=== PATIENT | female | born 1995 | race Caucasian/White ===

== ENCOUNTER 2020-10-16 15:46 | Outpatient (REF) | payer MEDICAID, SELFPAY | END 2020-10-16 15:47 | disposition home or self-care (01) | LOC: HO.LAB 15:46 | PROVIDERS: Visit Provider Internal Medicine | DX: Z20.828 Contact with and (suspected) exposure to other viral communicable diseases (principal) | CPT/HCPCS: C9803; U0003 ==

== ENCOUNTER 2020-11-05 09:00 | Outpatient (REF) | payer MEDICAID, SELFPAY | END 2020-11-05 09:01 | disposition home or self-care (01) | LOC: HO.LAB 09:00 | PROVIDERS: Visit Provider Internal Medicine | DX: Z20.828 Contact with and (suspected) exposure to other viral communicable diseases (principal) | CPT/HCPCS: C9803; U0003 ==

== ENCOUNTER 2020-12-16 15:03 | Outpatient (REF) | payer MEDICAID, SELFPAY | END 2020-12-16 15:04 | disposition home or self-care (01) | LOC: HO.LAB 15:03 | PROVIDERS: Visit Provider Internal Medicine | DX: Z20.822 Contact with and (suspected) exposure to COVID-19 (principal) | CPT/HCPCS: 36415; C9803; U0003 ==

== ENCOUNTER 2021-02-16 13:51 | Outpatient (REF) | payer MEDICAID, SELFPAY | END 2021-02-16 13:52 | disposition home or self-care (01) | LOC: HO.LAB 13:51 | PROVIDERS: Visit Provider Internal Medicine | DX: Z20.822 Contact with and (suspected) exposure to COVID-19 (principal) | CPT/HCPCS: 36415; C9803; U0003; U0005 ==

== ENCOUNTER 2021-03-23 09:21 | Outpatient (REF) | payer MEDICAID, SELFPAY ==
[2021-03-23 09:46] LABS: COVID-19 Test Negative (Negative)
== END 2021-03-23 09:22 | disposition home or self-care (01) ==
LOC: HO.LAB 09:21
PROVIDERS: Visit Provider Internal Medicine
DX: Z20.822 Contact with and (suspected) exposure to COVID-19 (principal)
CPT/HCPCS: 36415; 87635; C9803

== ENCOUNTER 2021-12-06 09:59 | Emergency (ER) | payer MEDICAID, SELFPAY ==
--- NOTE | ~2021-12-06 | US_ITS ---
EXAMINATION: US OBSTETRICAL ULTRASOUND CLINICAL INFORMATION: Positive home test. Vaginal bleeding. Rule out ectopic . COMPARISON: None. LMP: Unknown. Gestational age by maternal dates is . Estimated date of delivery by maternal dates is . TECHNIQUE: Transabdominal and transvaginal pelvic ultrasound was performed. Transvaginal exam was performed for better visualization of the uterus and ovaries. FINDINGS: The uterus is retroverted and measures 7.3 x 4.5 x 6 cm in dimension. The endometrium does not appear thickened measuring 0.6 cm. No intrauterine is seen. No focal uterine lesion is seen. The right ovary is slightly enlarged and measures 4 x 3.4 x 4.3 cm. There is a 3.5 x 2.9 x 3.8 cm complex right ovarian cyst with thickened septations and area of wall thickening. The left ovary is normal-appearing and measures 3.4 x 2.1 x 2.5 cm. There is a small amount of fluid in the pelvis. There is a 1 x 1.5 x 1.3 cm heterogeneous appearing solid area in the posterior cul-de-sac. US/US OB pelvic and transvaginal IMPRESSION: No intrauterine seen. Enlarged right ovary and 3.5 x 2.9 x 3.8 cm complex right ovarian cyst. Small amount of fluid in the pelvis with 1 x 1.5 x 1.3 cm echogenic solid appearing area. Ectopic cannot be excluded. Correlation with quantitative beta hCG and short-term follow-up OB ultrasound recommended. Findings will be communicated by the [place] work flow online facilitator Estrella Marie.
[2021-12-06 10:40] VITALS: BP 125/81; PULSE 70; RESP 19; TEMP 36.6; O2SAT 99; BMI 27.4
[2021-12-06 16:20] LABS: MANUAL DIFF FLAG NO
[2021-12-06 16:23] LABS: Hematocrit 40.8 % (37.0-47.0); Hemoglobin 13.2 g/dl (12.0-16.0); Mean Corpuscular Volume 89.7 fL (80.0-98.0); Red Blood Count 4.55 X10*6/uL (4.20-5.50); White Blood Count 9.5 X10*3/uL (4.8-10.8)
[2021-12-06 16:24] LABS: Basophils Percent Auto 0.3 % (0-2); Eosinophils Absolute Auto 0.2 X10*3/uL (0.0-0.4); Eosinophils Percent Auto 2.4 % (0-4); Imm Gran Abs Auto 0.03 X10*3/uL (0.00-0.03); Imm Gran Pct Auto 0.3 % (0.0-0.4); Lymphocytes Absolute Auto 3.3 X10*3/uL (1.2-4.9); Lymphocytes Percent Auto 35.1 % (20-40); Mean Corpuscular HGB Conc 32.4 g/dl (31.0-35.0); Mean Platelet Volume 9.2 fL (9.4-12.3); Monocytes Absolute Auto 0.7 X10*3/uL (0.1-1.2); Monocytes Percent Auto 7.6 % (2-11); Neutrophils Absolute Auto 5.2 x10*3/uL (2.0-8.3); Neutrophils Percent Auto 54.3 % (45-73); Platelet Count 240 X10*3/uL (160-400); Red Cell Distribution Width 12.7 % (11.0-16.0)
--- NOTE | 2021-12-06 16:24 | PC.NURSE ---
PT AMBULATED TO ROOM 1 LABS OBTAINED IV INSERTED. EVALUATED BY PROVIDER. DR PEDRAZA TO COME AND EVAL PATIENT
[2021-12-06 16:29] LABS: Prothrombin Time 11.8 SEC (9.9-13.0)
[2021-12-06 16:35] LABS: Alanine Aminotransferase 14 U/L (0-31); Albumin Level 4.1 g/dL (3.5-5.0); Alkaline Phosphatase 68 U/L (39-117); Anion Gap 10 (12-20); Aspartate Amino Transferase 13 U/L (5-31); Bilirubin Total 0.4 mg/dL (0.0-1.0); Blood Urea Nitrogen 8 mg/dL (9-16); Calcium 9.5 mg/dL (8.4-10.2); Carbon Dioxide 28 mmol/L (22-29); Chloride 106 mmol/L (96-108); Creatinine Clr Calc Pharmacy 132.2; Estimated Glomerular Filt Rate > 60; Glucose Random 98 mg/dL (60-115); Magnesium 2.2 mg/dL (1.6-2.6); Potassium 3.7 mmol/L (3.3-5.1); Sodium 140 mmol/L (135-145); Total Protein 7.4 g/dL (6.5-8.0)
[2021-12-06 16:36] VITALS: BP 117/68; PULSE 68; RESP 20; TEMP 37.1; O2SAT 100
[2021-12-06 16:41] LABS: Rheumatoid Factor < 15.0 IU/mL (<15.0)
[2021-12-06 16:42] LABS: HCG Quantitative 4 mIU/mL
[2021-12-06 16:44] LABS: Glucose Urine UA NEG (NEG); Leukocyte Esterase Urine TRACE (NEG); Nitrite Urine NEG (NEG); PH 6.5 (5.0-8.0); Specific Gravity - Urine 1.025 (1.005-1.025); UACC Culture Trigger YES; Urine Blood 3+ (NEG); Urine Ketones NEG (NEG); Urine Protein 2+ MG/DL (NEG-TRACE)
[2021-12-06 16:45] LABS: Appearance Urine HAZY; Color Urine DARK YELLOW
[2021-12-06 16:48] LABS: UPreg QC Valid YES; Urine Pregnancy NEGATIVE (NEGATIVE)
--- NOTE | 2021-12-06 16:49 | ED.GENADULT ---
HPI - General Adult General Chief complaint: General Medical Stated complaint: bleeding Time Seen by Provider: 12/06/21 10:35 Source: patient Mode of arrival: ambulatory Limitations: no limitations History of Present Illness HPI narrative: 26-year-old female AB 2 here with reports of 2 days of abdominal cramping (left) with vag bleeding (3 pads in 24 hr period). Patient tells me that she had normal. Around [place] which was 5 days long. Then on December 02 she had 3 days of light bleeding. Since then she has not had a menses. She took a home test next on November 22 was positive. Related Data Allergies Allergy/AdvReac Type Severity Reaction Status Date / Time No Known Allergies Allergy Unverified 08/13/20 16:20 [No Known Allergies*] Review of Systems Review of Systems: Yes all other systems are reviewed and are negative Constitutional: Constitutional: Reports no additional constitutional complaints, Denies body ache(s), Denies chills, Denies fever(s), Denies headache(s) and Denies weakness Eyes: Eyes: Reports no additional eye complaints and Denies change in vision ENT: Reports system reviewed and no additional complaints, except as documented, Denies dizziness, Denies headache(s), Denies nasal congestion, Denies nasal discharge and Denies neck pain Cardiovascular: Cardiovascular: Reports no additional cardiovascular complaints, Denies chest pain, Denies leg edema and Denies dyspnea Respiratory: Respiratory: Reports no additional respiratory complaints, Denies cough and Denies dyspnea Gastrointestinal: Gastrointestinal: Reports no additional gastrointestinal complaints, Reports abdominal pain, Denies diarrhea, Denies nausea and Denies vomiting Genitourinary: Genitourinary: Reports no additional female genitourinary complaints, Reports abnormal vaginal bleeding and Denies urinary incontinence Musculoskeletal: Musculoskeletal: Reports no additional musculoskeletal complaints, Denies back pain, Denies arthralgias, Denies joint swelling, Denies neck pain, Denies numbness and Denies tingling Integumentary/Breasts: Skin/Breast: Reports system reviewed and no additional complaints, except as docu and Denies rash Neurologic: Reports system reviewed and no additional complaints, except as documented, Denies Abnormal speech present, Denies dizziness, Denies headache(s), Denies numbness, Denies tingling and Denies weakness [facility] Past Medical History Attestation statement: The following information was validated with the patient. Source: old records reviewed and nursing notes reviewed Medical History Asthma Physical Exam Vital Signs: Vital Signs: Last Vital Signs Temp 98.7 F 12/06/21 16:36 Pulse 68 12/06/21 16:36 Resp 20 12/06/21 16:36 BP 117/68 12/06/21 16:36 Pulse Ox 100 12/06/21 16:36 BMI result Body Mass Index 27.4 Const: General: cooperative, healthy appearing, comfortable and no acute distress Orientation/consciousness: patient oriented x3 Limitations: no limitations HENMT: Head: Yes normal to inspection Ears: hearing grossly normal bilaterally General nose exam: Normal external nose present Face and sinus: Yes normal facial exam Mouth: Normal oral and palatal mucosa present Throat: Yes posterior oropharynx normal Eyes: General: appearance normal, both eyes and all related structures Pupils: Equal, round and reactive pupils present Neck: Neck: Yes normal visual inspection Chest: Chest palpation & inspection: normal inspection of the chest Resp: Effort & Inspection: normal respiratory effort Auscultation: clear to auscultation bilaterally Cardio: Rate: regular rate Rhythm: regular rhythm Peripheral pulses: Peripheral pulses 2+ throughout GI: Inspection: Yes normal to inspection Palpation (GI): Soft to palpation and nontender Auscultation: normal bowel sounds : Other: Pelvic exam done by Dr Kaminski Back/Spine/Pelvis: Thoracic/Lumbar Spine: thoracic and lumbar spine normal to inspection Skin: General skin exam: no rashes or lesions noted Neuro: General: patient oriented x3, no focal motor deficits and normal sensation to monofilament Cranial nerves: Yes Equal, round and reactive pupils present Cognition (Neuro): normal cognition Speech: No Abnormal speech present Gait exam (Neuro): Normal gait present Motor exam (neuro): 5/5 motor strength present throughout Extrem: General: Yes normal to inspection Course Course Course Narrative: 26 yo female here with pelvic pain left and vaginal bleeding for 2 days with a home test that was positive on November 22. Has not had care and has not had an ultrasound to confirm IUP. Abdomen is soft and nontender exam. Vitals are stable Ultrasound from triage was concerning for a possible ectopic and so Dr. Gordy Del Toro was notified and is coming down to see the patient. This was done prior to labs and urine sampling. -patient had a pelvic exam done by Dr. kaminski. Testing for BV and CT NG were sent. Again abdomen is soft and nontender. Vitals are stable. Patient's urine is negative. Her labs are unremarkable. Her beta quant is 4 and her urine was negative. -After discussion likely spontaneous miscarriage. Not likely ectopic . RH is A negative. Patient has required Rhogam in the past. OB is asking for screen prior to Rhogam administration. I spoke to the blood bank (mary) who tells me this can be added to the labs she has and no need for additional lab draw. -reviewed worrisome signs and symptoms with the patient when to return to the emergency department. I ordered a repeat quant in 48 hours and the patient was informed of this. The patient will follow-up with her in the office. Medical Decision Making Medical Records Medical records reviewed: Yes I reviewed the patient's medical records. Lab Data Lab results reviewed: Yes I reviewed the patient's lab results. Result diagrams: 12/06/21 16:14 12/06/21 16:14 Labs: Lab Results 12/06/21 12/06/21 12/06/21 Range/Units 16:14 16:14 16:14 WBC 9.5 (4.8-10.8) X10*3/uL RBC 4.55 (4.20-5.50) X10*6/uL Hgb 13.2 (12.0-16.0) g/dl Hct 40.8 (37.0-47.0) % MCV 89.7 (80.0-98.0) fL MCH 29.0 (27.0-33.0) pg MCHC 32.4 (31.0-35.0) g/dl RDW 12.7 (11.0-16.0) % Plt Count 240 (160-400) X10*3/uL MPV 9.2 L (9.4-12.3) fL Immature Gran % (Auto) 0.3 (0.0-0.4) % Neut % (Auto) 54.3 (45-73) % Lymph % (Auto) 35.1 (20-40) % Meigs % (Auto) 7.6 (2-11) % Eos % (Auto) 2.4 (0-4) % Baso % (Auto) 0.3 (0-2) % Lymph # (Auto) 3.3 (1.2-4.9) X10*3/uL Meigs # (Auto) 0.7 (0.1-1.2) X10*3/uL Eos # (Auto) 0.2 (0.0-0.4) X10*3/uL Baso # (Auto) 0.0 (0.0-0.2) X10*3/uL Abs Immat Gran (auto) 0.03 (0.00-0.03) X10*3/uL Absolute Neuts (auto) 5.2 (2.0-8.3) x10*3/uL Absolute Nucleated RBC 0.000 (0.0-0.012) X10*3/uL Nucleated RBC % (auto) 0.0 (0.0-0.2) /100WBC PT 11.8 (9.9-13.0) SEC INR 1.0 (0.9-1.1) Sodium 140 (135-145) mmol/L Potassium 3.7 (3.3-5.1) mmol/L Chloride 106 (96-108) mmol/L Carbon Dioxide 28 (22-29) mmol/L Anion Gap 10 L (12-20) BUN 8 L (9-16) mg/dL Creatinine 0.67 (0.5-1.4) mg/dL Estim Creat Clear Calc 132.2 Estimated GFR > 60 Random Glucose 98 (60-115) mg/dL Calcium 9.5 (8.4-10.2) mg/dL Magnesium 2.2 (1.6-2.6) mg/dL Total Bilirubin 0.4 (0.0-1.0) mg/dL AST 13 (5-31) U/L ALT 14 (0-31) U/L Alkaline Phosphatase 68 (39-117) U/L Total Protein 7.4 (6.5-8.0) g/dL Albumin 4.1 (3.5-5.0) g/dL Beta HCG, Quant 4 mIU/mL Urine Color Urine Appearance Urine pH (5.0-8.0) Ur Specific Benedict (1.005-1.025) Urine Protein (NEG-TRACE) MG/DL Urine Glucose (UA) (NEG) MG/DL Urine Ketones (NEG) MG/DL Urine Blood (NEG) Urine Nitrite (NEG) Ur Leukocyte Esterase (NEG) Urine RBC (0) /HPF Urine WBC (0-4) /HPF Ur Squamous Epith Cells /LPF Urine Bacteria /LPF Granular Casts /LPF Urine Test (NEGATIVE) Rheumatoid Factor (<15.0) IU/mL Blood Type 12/06/21 12/06/21 12/06/21 Range/Units 16:23 16:28 16:35 WBC (4.8-10.8) X10*3/uL RBC (4.20-5.50) X10*6/uL Hgb (12.0-16.0) g/dl Hct (37.0-47.0) % MCV (80.0-98.0) fL MCH (27.0-33.0) pg MCHC (31.0-35.0) g/dl RDW (11.0-16.0) % Plt Count (160-400) X10*3/uL MPV (9.4-12.3) fL Immature Gran % (Auto) (0.0-0.4) % Neut % (Auto) (45-73) % Lymph % (Auto) (20-40) % Meigs % (Auto) (2-11) % Eos % (Auto) (0-4) % Baso % (Auto) (0-2) % Lymph # (Auto) (1.2-4.9) X10*3/uL Meigs # (Auto) (0.1-1.2) X10*3/uL Eos # (Auto) (0.0-0.4) X10*3/uL Baso # (Auto) (0.0-0.2) X10*3/uL Abs Immat Gran (auto) (0.00-0.03) X10*3/uL Absolute Neuts (auto) (2.0-8.3) x10*3/uL Absolute Nucleated RBC (0.0-0.012) X10*3/uL Nucleated RBC % (auto) (0.0-0.2) /100WBC PT (9.9-13.0) SEC INR (0.9-1.1) Sodium (135-145) mmol/L Potassium (3.3-5.1) mmol/L Chloride (96-108) mmol/L Carbon Dioxide (22-29) mmol/L Anion Gap (12-20) BUN (9-16) mg/dL Creatinine (0.5-1.4) mg/dL Estim Creat Clear Calc Estimated GFR Random Glucose (60-115) mg/dL Calcium (8.4-10.2) mg/dL Magnesium (1.6-2.6) mg/dL Total Bilirubin (0.0-1.0) mg/dL AST (5-31) U/L ALT (0-31) U/L Alkaline Phosphatase (39-117) U/L Total Protein (6.5-8.0) g/dL Albumin (3.5-5.0) g/dL Beta HCG, Quant mIU/mL Urine Color DARK YELLOW Urine Appearance HAZY Urine pH 6.5 (5.0-8.0) Ur Specific Benedict 1.025 (1.005-1.025) Urine Protein 2+ H (NEG-TRACE) MG/DL Urine Glucose (UA) NEG (NEG) MG/DL Urine Ketones NEG (NEG) MG/DL Urine Blood 3+ H (NEG) Urine Nitrite NEG (NEG) Ur Leukocyte Esterase TRACE H (NEG) Urine RBC 15-29 H (0) /HPF Urine WBC 1-4 (0-4) /HPF Ur Squamous Epith Cells TRACE /LPF Urine Bacteria 1+ /LPF Granular Casts 0-2 /LPF Urine Test (NEGATIVE) Rheumatoid Factor < 15.0 (<15.0) IU/mL Blood Type A Negative 12/06/21 Range/Units 16:35 WBC (4.8-10.8) X10*3/uL RBC (4.20-5.50) X10*6/uL Hgb (12.0-16.0) g/dl Hct (37.0-47.0) % MCV (80.0-98.0) fL MCH (27.0-33.0) pg MCHC (31.0-35.0) g/dl RDW (11.0-16.0) % Plt Count (160-400) X10*3/uL MPV (9.4-12.3) fL Immature Gran % (Auto) (0.0-0.4) % Neut % (Auto) (45-73) % Lymph % (Auto) (20-40) % Meigs % (Auto) (2-11) % Eos % (Auto) (0-4) % Baso % (Auto) (0-2) % Lymph # (Auto) (1.2-4.9) X10*3/uL Meigs # (Auto) (0.1-1.2) X10*3/uL Eos # (Auto) (0.0-0.4) X10*3/uL Baso # (Auto) (0.0-0.2) X10*3/uL Abs Immat Gran (auto) (0.00-0.03) X10*3/uL Absolute Neuts (auto) (2.0-8.3) x10*3/uL Absolute Nucleated RBC (0.0-0.012) X10*3/uL Nucleated RBC % (auto) (0.0-0.2) /100WBC PT (9.9-13.0) SEC INR (0.9-1.1) Sodium (135-145) mmol/L Potassium (3.3-5.1) mmol/L Chloride (96-108) mmol/L Carbon Dioxide (22-29) mmol/L Anion Gap (12-20) BUN (9-16) mg/dL Creatinine (0.5-1.4) mg/dL Estim Creat Clear Calc Estimated GFR Random Glucose (60-115) mg/dL Calcium (8.4-10.2) mg/dL Magnesium (1.6-2.6) mg/dL Total Bilirubin (0.0-1.0) mg/dL AST (5-31) U/L ALT (0-31) U/L Alkaline Phosphatase (39-117) U/L Total Protein (6.5-8.0) g/dL Albumin (3.5-5.0) g/dL Beta HCG, Quant mIU/mL Urine Color Urine Appearance Urine pH (5.0-8.0) Ur Specific Benedict (1.005-1.025) Urine Protein (NEG-TRACE) MG/DL Urine Glucose (UA) (NEG) MG/DL Urine Ketones (NEG) MG/DL Urine Blood (NEG) Urine Nitrite (NEG) Ur Leukocyte Esterase (NEG) Urine RBC (0) /HPF Urine WBC (0-4) /HPF Ur Squamous Epith Cells /LPF Urine Bacteria /LPF Granular Casts /LPF Urine Test NEGATIVE (NEGATIVE) Rheumatoid Factor (<15.0) IU/mL Blood Type Discharge Plan Discharge Clinical Impression: Spontaneous Patient Disposition: Home, Self-Care Instructions: Miscarriage (ED) Additional Instructions: Repeat quant in 48 hours Follow-up with Dr. Kaminski this week Return for severe bleeding >1 pad/hr Referrals: Evaristo Kaminski MD [Physician] - 2 days Interventions: ED Discharge Assessment Last Done: 12/06/21 18:29 Discharge Date/Time: 12/06/21 18:30
--- NOTE | 2021-12-06 16:51 | P.CONOB_ITS ---
DEPUTY SHERIFF CUSTODY - CN: HPI Data of Consult Consult date: 12/06/21 Primary Care Provider: Kathya Holt MD Consult Narrative Narrative: I was consulted on Shawanda Sandoval who is a 26 year old female who presented to the emergency room with 2 day history of left-sided pelvic cramping associated with vaginal bleeding. BP was on . The patient took a test on 11/25 was positive. The emergency room the following workup was done: H&H seen 0.2/40.8 chemistry within normal hCG 4, pelvic ultrasound showed the f ollowing: No intrauterine seen. Enlarged right ovary and 3.5 x 2.9 x3.8 cm comp tay right ovarian cyst. Small amount of fluid in the pelvis with 1 x 1.5 x 1.3 cm echogenic solid appearing area. Ectopic cannot be excluded. Correlation with quantitative beta hCG and short-term follow-up OB ultrasound recommended. ? cc:: CC: OB [facility] Past Medical History Medical History (Updated 12/06/21 @ 16:54 by Evaristo Kaminski MD) Asthma Social History Social History Advance Directives: No Advance Directives Information Provided: Yes Patient : Yes Meds Allergies Allergy/AdvReac Type Severity Reaction Status Date / Time No Known Allergies Allergy Unverified 08/13/20 16:20 [No Known Allergies*] [employer]ER[employer] CUSTODY Physical Exam Vitals Vital signs: Temp Pulse Resp BP Pulse Ox 98.7 F 68 20 117/68 100 12/06/21 16:36 12/06/21 16:36 12/06/21 16:36 12/06/21 16:36 12/06/21 16:36 BMI result Body Mass Index 27.4 Abdomen Auscultation/Inspection/Palpation: Soft and No tenderness Female Genitalia (Pelvic) Bladder/Urethra: Normal meatus Vagina: Nontender and No erythema Cervix: Grossly normal Uterus: Normal size Adnexa/Parametria: Adnexal Tenderness: None, Adnexal Mass: None, Parametrial Tenderness: None and Parametrial Mass: None Additional Comments: Mild blood per vagina, closed cervix, no active bleeding [employer]PUT[employer] SHERIFF CUSTODY - Results Labs CBC & Chem 7: 12/06/21 16:14 12/06/21 16:14 Labs: Short CBC 12/06/21 Range/Units 16:14 WBC 9.5 (4.8-10.8) X10*3/uL Hgb 13.2 (12.0-16.0) g/dl Hct 40.8 (37.0-47.0) % Plt Count 240 (160-400) X10*3/uL BMP 12/06/21 16:14 Sodium 140 Potassium 3.7 Chloride 106 Carbon Dioxide 28 BUN 8 L Creatinine 0.67 Calcium 9.5 Liver Function 12/06/21 Range/Units 16:14 Total Bilirubin 0.4 (0.0-1.0) mg/dL AST 13 (5-31) U/L ALT 14 (0-31) U/L Alkaline Phosphatase 68 (39-117) U/L Albumin 4.1 (3.5-5.0) g/dL Urine 12/06/21 12/06/21 Range/Units 16:35 16:35 Urine Color DARK YELLOW Urine Appearance HAZY Urine pH 6.5 (5.0-8.0) Ur Specific [place] 1.025 (1.005-1.025) Urine Protein 2+ H (NEG-TRACE) MG/DL Urine Glucose (UA) NEG (NEG) MG/DL Urine Test NEGATIVE (NEGATIVE) Assessment and Plan (1) Complete : Status: Acute Discussed with the patient did her history, workup and physical exam is suggestive of complete , since urine test was positive but suggestive that hCG was higher, her vaginal bleeding episode hCG dropped to 4, will be able to confirm it with hCG quantitative in 48 hours , if hCG goes down to 0, complete diagnosed will be confirmed, if hCG goes up then will monitor hCG Q 48 hours to rule out ectopic versus intrauterine . All Questions answered, the patient verbalized understanding and Instructions given to patient to call or come back to the emergency room in case of heavy vaginal bleeding or pelvic pain (2) Complex ovarian cyst: Status: Acute Discussed with the patient the findings on pelvic ultrasound, 3.5 x 2.9 x3.8 cm complex right ovarian cyst, differential diagnosis includes malignant versus non malignant spinneret person and non spinneret person causes. Follow-up as an outpatient in 3 months. All questions answered, the patient verbalized understanding
[2021-12-06 16:54] LABS: Squamous Epithelial Cell Urine TRACE /LPF
[2021-12-06 16:57] LABS: Bacteria Urine 1+ /LPF
[2021-12-06 16:58] LABS: Granular Casts Urine 0-2 /LPF
[2021-12-06] MEDS: Rho(D) Immune Globulin 300 MCG SYRINGE IM (17:44)
[2021-12-07 01:43] LABS: CT PCR NOT DETECTED (Not Detect.); NG PCR NOT DETECTED (Not Detect.)
[2021-12-07 09:10] LABS: BV Int Neg Control Negative (Negative); BV Int Pos Control Positive (Positive)
== END 2021-12-06 18:30 | disposition home or self-care (01) ==
PROVIDERS: Nurse Practitioner Family; Physician Assistant Medical; Emergency Provider Emergency Medicine; PCP Internal Medicine
DX: O03.9 Complete or unspecified spontaneous abortion without complication (principal); N83.291 Other ovarian cyst, right side
CPT/HCPCS: 36415; 76801; 76817; 80053; 81001; 81025; 83735; 84702; 85025; 85610; 86431; 86850; 86900; 86901; 87086; 87480; 87491; 87510; 87591; 87660; 96372; 99284; J2790

== ENCOUNTER 2022-02-24 09:25 | Outpatient (REF) | payer MEDICAID, SELFPAY ==
[2022-02-24 12:14] LABS: Hematocrit 38.8 % (37.0-47.0); Hemoglobin 12.8 g/dl (12.0-16.0); Mean Corpuscular Hemoglobin 29.2 pg (27.0-33.0); Mean Corpuscular Volume 88.6 fL (80.0-98.0); Mean Platelet Volume 9.3 fL (9.4-12.3); Platelet Count 247 X10*3/uL (160-400); Red Blood Count 4.38 X10*6/uL (4.20-5.50); White Blood Count 10.7 X10*3/uL (4.8-10.8)
== END 2022-02-24 09:26 | disposition home or self-care (01) ==
LOC: HO.LAB 09:25
PROVIDERS: PCP Internal Medicine; Visit Provider Advanced Practice Midwife
DX: Z32.01 Encounter for pregnancy test, result positive (principal)
CPT/HCPCS: 36415; 81025; 84702; 85027; 86850; 86900; 86901; 99212

== ENCOUNTER 2024-06-07 14:43 | Outpatient (REF) | payer MEDICAID, SELFPAY ==
[2024-06-07 16:01] LABS: MANUAL DIFF FLAG NO
[2024-06-07 16:10] LABS: Basophils Percent Auto 0.3 % (0-2); Eosinophils Absolute Auto 0.1 X10*3/uL (0.0-0.4); Eosinophils Percent Auto 1.6 % (0-4); Hematocrit 43.4 % (37.0-47.0); Hemoglobin 14.2 g/dl (12.0-16.0); Imm Gran Abs Auto 0.03 X10*3/uL (0.00-0.03); Imm Gran Pct Auto 0.3 % (0.0-0.4); Lymphocytes Absolute Auto 2.5 X10*3/uL (1.2-4.9); Lymphocytes Percent Auto 27.9 % (20-40); Mean Corpuscular HGB Conc 32.7 g/dl (31.0-35.0); Mean Corpuscular Hemoglobin 29.6 pg (27.0-33.0); Mean Corpuscular Volume 90.4 fL (80.0-98.0); Monocytes Absolute Auto 0.7 X10*3/uL (0.1-1.2); Monocytes Percent Auto 7.6 % (2-11); Neutrophils Absolute Auto 5.5 x10*3/uL (2.0-8.3); Neutrophils Percent Auto 62.3 % (45-73); Platelet Count 267 X10*3/uL (160-400); Red Cell Distribution Width 13.2 % (11.0-16.0); White Blood Count 8.8 X10*3/uL (4.8-10.8)
[2024-06-07 16:22] LABS: Estimated Average Glucose 103 mg/dL; Hemoglobin A1c % 5.2 % (<6.0)
[2024-06-07 16:41] LABS: Alanine Aminotransferase 13 U/L (0-31); Albumin Level 4.3 g/dL (3.5-5.0); Alkaline Phosphatase 60 U/L (39-117); Anion Gap 10 (12-20); Aspartate Amino Transferase 10 U/L (5-31); Bilirubin Total 0.2 mg/dL (0.0-1.0); Blood Urea Nitrogen 7 mg/dL (9-16); Calcium 9.9 mg/dL (8.4-10.2); Carbon Dioxide 28 mmol/L (22-29); Chloride 106 mmol/L (96-108); Cholesterol 205 mg/dL (<200); Estimated Glomerular Filt Rate > 60; Glucose Random 94 mg/dL (60-115); HDL Cholesterol 47 mg/dL (>40); LDL Cholesterol Calculated 120 mg/dL (<100); Magnesium 2.1 mg/dL (1.6-2.6); Potassium 3.5 mmol/L (3.3-5.1); Sodium 140 mmol/L (135-145); Total Protein 7.7 g/dL (6.5-8.0); Triglycerides 190 mg/dL (<150)
[2024-06-07 16:49] LABS: TSH reflex Free T4 1.77 uIU/mL (0.32-4.0)
[2024-06-07 16:54] LABS: Reflex LDLD? No
[2024-06-07 18:37] LABS: CT PCR NOT DETECTED (Not Detect.); NG PCR NOT DETECTED (Not Detect.)
[2024-06-10 00:04] LABS: TS Negative Control Passed; TS Panel A 0; TS Panel B 0; TS Positive Control Passed; TSpotTB Negative (Negative)
[2024-06-10 05:11] LABS: HIV AB/AG Nonreactive (Nonreactive); HIV Num 1 0.05 S/CO (0.00-0.99)
[2024-06-10 13:24] LABS: HCV Log PCR <1.18 NOT DETECTED Log IU/mL (NOT DETECTED); HepC Viral Load <15 NOT DETECTED IU/mL (NOT DETECTED)
[2024-06-10 17:53] LABS: RPR Rapid Plasma Reagin NON-REACTIVE (NON-REACTIVE)
== END 2024-06-07 14:44 | disposition home or self-care (01) ==
LOC: HO.HHCL 14:43
PROVIDERS: Visit Provider Internal Medicine
DX: Z00.00 Encounter for general adult medical examination without abnormal findings (principal); E87.6 Hypokalemia
CPT/HCPCS: 36415; 80053; 80061; 83036; 83735; 84443; 85025; 86481; 86592; 87389; 87491; 87522; 87591

== ENCOUNTER 2024-10-29 11:48 | Emergency (ER) | payer MEDICAID, SELFPAY ==
[2024-10-29 12:39] VITALS: BP 154/121; PULSE 106; RESP 18; TEMP 36.7; O2SAT 98; BMI 26.5
--- NOTE | 2024-10-29 12:43 | ED.ABDPAIN ---
HPI - Abdominal Pain General Chief Complaint: Abdominal Pain Stated Complaint: ABD PAIN,NAUSEA PER EMS Related Data Previous Rx's ?Medication ?Instructions ?Recorded vitamin with calcium 1 tab PO DAILY #100 tabs 02/24/22 no.72-iron 27 mg-folic acid 1 mg tablet ( Vitamins Plus Low Iron) Allergies Allergy/AdvReac Type Severity Reaction Status Date / Time No Known Allergies Allergy Verified 10/29/24 12:41 [No Known Allergies*] [facility] Past Medical History Medical History Asthma Social History Social History (Updated 02/24/22 @ 09:33 by Bairon Morgan CMA) Alcohol intake: former Patient Tobacco Use Status: Never used Tobacco Advance Directives: No Advance Directives Information Provided: No Do you have a plan to hurt others: No Plan Gender identity: Female Physical Exam ED Vital Signs: BMI result Body Mass Index 26.5 Course Course Course Narrative: This is a rapid medical exam performed by Mary Singh PA-C. The patient is a 28-year-old female with a history of ovarian cysts and anxiety, who presents with acute onset nausea vomiting diarrhea since this morning. Associated generalized abdominal discomfort. Her abdomen is soft nondistended nontender no guarding. We will screen basic labs, this is likely viral. The patient is able to return to the waiting room as she is hemodynamically stable, pending her full medical assessment. Reevaluation(s) Reevaluation #1: Patient left without completing her assessment Medical Decision Making Lab Data 10/29/24 13:57 10/29/24 13:57 Labs: Lab Results 10/29/24 Range/Units 13:57 WBC 13.9 H (4.8-10.8) X10*3/uL RBC 4.99 (4.20-5.50) X10*6/uL Hgb 14.7 (12.0-16.0) g/dl Hct 43.6 (37.0-47.0) % MCV 87.4 (80.0-98.0) fL MCH 29.5 (27.0-33.0) pg MCHC 33.7 (31.0-35.0) g/dl RDW 12.8 (11.0-16.0) % Plt Count 240 (160-400) X10*3/uL MPV 9.1 L (9.4-12.3) fL Immature Gran % (Auto) 0.4 (0.0-0.4) % Neut % (Auto) 89.8 H (45-73) % Lymph % (Auto) 6.4 L (20-40) % Slope % (Auto) 3.0 (2-11) % Eos % (Auto) 0.1 (0-4) % Baso % (Auto) 0.3 (0-2) % Lymph # (Auto) 0.9 L (1.2-4.9) X10*3/uL [place]ope # (Auto) 0.4 (0.1-1.2) X10*3/uL Eos # (Auto) 0.0 (0.0-0.4) X10*3/uL Baso # (Auto) 0.0 (0.0-0.2) X10*3/uL Abs Immat Gran (auto) 0.06 H (0.00-0.03) X10*3/uL Absolute Neuts (auto) 12.5 H (2.0-8.3) x10*3/uL Absolute Nucleated RBC 0.000 (0.0-0.012) X10*3/uL Nucleated RBC % (auto) 0.0 (0.0-0.2) /100WBC Sodium 143 (135-145) mmol/L Potassium 3.6 (3.3-5.1) mmol/L Chloride 110 H (96-108) mmol/L Carbon Dioxide 24 (22-29) mmol/L Anion Gap 13 (12-20) BUN 11 (9-16) mg/dL Creatinine 0.67 (0.5-1.4) mg/dL Estim Creat Clear Calc 127.8 Estimated GFR > 60 Random Glucose 140 H (60-115) mg/dL Calcium 10.0 (8.4-10.2) mg/dL Magnesium 2.1 (1.6-2.6) mg/dL Total Bilirubin 0.8 (0.0-1.0) mg/dL AST 15 (5-31) U/L ALT 14 (0-31) U/L Alkaline Phosphatase 58 (39-117) U/L Total Protein 8.0 (6.5-8.0) g/dL Albumin 4.6 (3.5-5.0) g/dL Lipase 15 (8-78) U/L Beta HCG, Quant < 2 mIU/mL Medications Administered Discontinued Medications Generic Name Dose Route Start Last Admin Trade Name Freq PRN Reason Stop Dose Admin Metoclopramide HCl 10 mg 10/29/24 12:42 10/29/24 12:45 Metoclopramide Hcl 10 Mg/2 Ml Vial IM 10/29/24 12:43 10 mg ONCE ONE Administration Discharge Plan Discharge Clinical Impression: Abdominal pain Patient Disposition: Left W/O Completing Treatment Prescriptions: No Action Vitamin Plus Low Iron 27 mg iron- 1 mg tablet 1 tab PO DAILY Qty: 100 0RF Discharge Date/Time: 10/29/24 16:51
[2024-10-29] MEDS: Metoclopramide HCl 10 MG/2 ML VIAL IM (12:45)
[2024-10-29 14:00] LABS: MANUAL DIFF FLAG NO
[2024-10-29 14:02] LABS: Basophils Percent Auto 0.3 % (0-2); Eosinophils Percent Auto 0.1 % (0-4); Hematocrit 43.6 % (37.0-47.0); Hemoglobin 14.7 g/dl (12.0-16.0); Imm Gran Abs Auto 0.06 X10*3/uL (0.00-0.03); Imm Gran Pct Auto 0.4 % (0.0-0.4); Lymphocytes Absolute Auto 0.9 X10*3/uL (1.2-4.9); Lymphocytes Percent Auto 6.4 % (20-40); Mean Corpuscular HGB Conc 33.7 g/dl (31.0-35.0); Mean Corpuscular Hemoglobin 29.5 pg (27.0-33.0); Mean Corpuscular Volume 87.4 fL (80.0-98.0); Mean Platelet Volume 9.1 fL (9.4-12.3); Monocytes Absolute Auto 0.4 X10*3/uL (0.1-1.2); Neutrophils Absolute Auto 12.5 x10*3/uL (2.0-8.3); Neutrophils Percent Auto 89.8 % (45-73); Platelet Count 240 X10*3/uL (160-400); Red Blood Count 4.99 X10*6/uL (4.20-5.50); Red Cell Distribution Width 12.8 % (11.0-16.0); White Blood Count 13.9 X10*3/uL (4.8-10.8)
[2024-10-29 14:21] LABS: Alanine Aminotransferase 14 U/L (0-31); Albumin Level 4.6 g/dL (3.5-5.0); Alkaline Phosphatase 58 U/L (39-117); Anion Gap 13 (12-20); Aspartate Amino Transferase 15 U/L (5-31); Bilirubin Total 0.8 mg/dL (0.0-1.0); Blood Urea Nitrogen 11 mg/dL (9-16); Carbon Dioxide 24 mmol/L (22-29); Chloride 110 mmol/L (96-108); Creatinine Clr Calc Pharmacy 127.8; Estimated Glomerular Filt Rate > 60; Glucose Random 140 mg/dL (60-115); Lipase 15 U/L (8-78); Magnesium 2.1 mg/dL (1.6-2.6); Potassium 3.6 mmol/L (3.3-5.1); Sodium 143 mmol/L (135-145)
[2024-10-29 14:24] LABS: HCG Quantitative < 2 mIU/mL
--- NOTE | 2024-10-29 19:18 | PC.NURSE ---
no answer from waiting room at [id number] and [id number] [facility]
== END 2024-10-29 16:51 | disposition left against medical advice (07) ==
PROVIDERS: Physician Assistant Medical; Emergency Provider Emergency Medicine Emergency Medical Services
DX: R10.2 Pelvic and perineal pain (principal); R11.2 Nausea with vomiting, unspecified; Z79.899 Other long term (current) drug therapy
CPT/HCPCS: 36415; 80053; 83690; 83735; 84702; 85025; 96372; 99281; 99284; J2765

== ENCOUNTER 2025-06-09 14:45 | Outpatient (REF) | payer MEDICAID, SELFPAY ==
--- OUTSIDE RECORDS SUMMARY | 2025-06-09 16:01 | XMS_ITS | Encounter Summary ---
Author Organization [email or web address] Address [address] [place] [address] Care Team Providers Care Auto Glass Worker Name Role Phone Kathya Paulino MD Primary Care Provide r Encounter Details Date Type Department Care Team (Late st Contact Info) Description 10/16/2023 Abstract [facility] [address] [place] [address] Beth Aldridge Social History Tobacco Use Types Packs/Day Years Used Date Smoking Tobacco: Never Housing Stability Answer Date Recorded What is your housing situation today? I have ortega lamb 09/20/[address] you li ve. Do you have problems with any of the following? None of the above 09/20/2023 Food Insecurity Answer Date Recorded Within the past 12 months, y ou worried that your food would run out before you got money to buy more: Never True 09/20/2023 Within the past 12 months,th e food you bought just didn't last and you didn't have enough money to get more: Never True Transportation Answer Date Recorded In the past 12 months, has l ack of transportation kept you from medical appts, meetings, work or from getting things needed for daily living? No 09/20/2023 Utilities Answer Date Recorded In the past 12 months, has t he electric, gas, oil or water company threatened to shut off services in your home? No 09/20/2023 Comments Unknown Sex and Gender Information Value Date Recorded Sex Assigned at Female 09/26/2022 10:14 AM EDT Legal Sex Female 10:14 AM EDT Gender Identity Female 09/26/2022 10:14 AM EDT Sexual Orientation Straight 09/26/2022 10 :14 AM EDT documented as of this encounter Plan of Treatment Not on file documented as of this encounter Visit Diagnoses Not on filedocumented in this encounter Care Teams Auto Glass Worker Relationship Specialty Start Date End Date Kathya Paulino MD [address] [place] [address] PCP - General Family Medicine 09/19/19 Miguel Ángel De Paz Beam SealerSpecial Skills Officer 03/06/25 documented as of this encounter
--- OUTSIDE RECORDS SUMMARY | 2025-06-09 16:01 | XMS_ITS | Clinical Summary ---
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 Name Role Phone Unavailable Primary Care Provider Unavailabl e Source Comments PLEASE NOTE, if this patient is a minor, it may be UNLAWFUL to discuss sensitive information that is contained in these records (such as FAMILY PLANNING, MENTAL HEALTH or SUBSTANCE ABUSE) with the minor patient's parent or other person without the patient's specific authorization.[facility] Social History Tobacco Use Types Packs/Day Years Used Date Smoking Tobacco: Never Assessed Comments Unknown Sex and Gender Information Value Date Recorded Sex Assigned at Female 05/12/2025 8:35 AM PDT Legal Sex Female 8:35 AM PDT Gender Identity Female 05/12/2025 8:35 AM PDT Sexual Orientation Not on file Plan of Treatment Upcoming Encounters Date Type Department Care Team (Late st Contact Info) Description 07/01/2025 8:00 AM EDT Behavioral Health Visit [facility] [address] [place] [address] [facility] [place] [phone] Dilshad Franklin, HNP [address] [place] [address] [place] [phone] Health Maintenance Due Date Last Done Comments Anxiety Screening 1994 HPV Screening 1994 Hepatitis C Screening 1994 Pap + HPV 1994 Tobacco Screening 1994 Relationship Safety Screening/Counseling 2009 Hypertension Screening (#1) 2012 Cervical Cancer Screening 2015 Pap Smear 2015 [id number] ( season) 2024 Alcohol and Drug Screen 11/27/2024 Depression Annual Screen 11/27/2024 Imm-Influenza (#1) 2025 09/05/2019, 0 11/29/2011, 07/20/2011, Additional history exists Imm-DTaP/Tdap/Td (11 - Td or Tdap) 08/26/2032 08/26/2022, 11/29/2017, 07/08/2016, Additional history exists Imm-Hepatitis B Completed 08/01/1995, 05/1995, 1994 HIV Screening Completed 06/07/2024 Cervical Ablation/Cold-Knife Conization Discontinued Cervical Cryotherapy Discontinued Colposcopy Discontinued Endometrial Biopsy Discontinued Excision/Leep Discontinued HPV Genotyping Discontinued Vaginal Pap Discontinued Vulvoscopy Discontinued Insurance [facility]
[2025-06-12 08:02] LABS: TS Negative Control Passed; TS Panel A 0; TS Panel B 0; TS Positive Control Passed; TSpotTB Negative (Negative)
== END 2025-06-09 14:46 | disposition home or self-care (01) ==
LOC: HO.HHCL 14:45
PROVIDERS: PCP Internal Medicine; Visit Provider Internal Medicine
DX: Z11.1 Encounter for screening for respiratory tuberculosis (principal)
CPT/HCPCS: 36415; 86481